=== PATIENT | male | born 1975 | race Caucasian/White ===

== ENCOUNTER 2017-04-24 15:27 | Emergency (ER) | payer SELFPAY ==
[~2017-04-24] VITALS: Ht 165.1 cm; Wt 59.4 kg
[~2017-04-24 15:27] MED LIST: CIPR2.5D15 LEFT EYE
[2017-04-24 15:29] VITALS: Ht 165.1 cm; Wt 59.4 kg
[2017-04-24] MEDS ORDERED: KETOROLAC 30 MG INJ IV STA (15:55)
[2017-04-24] MEDS ORDERED: METHYLPREDNISOLONE 125 MG INJ IV ONE (16:00)
[2017-04-24] MEDS ORDERED: HYDROmorphONE 2 MG/ML SYG IV ONE (16:00)
[2017-04-24] MEDS ORDERED: ONDANSETRON 4 MG INJ IV ONE (16:00)
[2017-04-24] MEDS ORDERED: HYDROmorphONE 1 MG/ML SYG IV STA (17:38)
[2017-04-24] MEDS ORDERED: HYDR-902 PO (18:18)
[2017-04-24] MEDS ORDERED: IBUP800T25 PO (18:18)
[2017-04-24] MEDS ORDERED: METH750T93 PO (18:18)
--- NOTE | 2017-04-24 18:20 | ERD ---
ER Documentation Chief Complaint Chief Complaint pt bib self with c/o left sided back pain radiating to leg, HPI This is a 41-year-old male who was working under his car and when he stood up he felt a sharp pain in his left back and the lower region. There is a slight radiation to the left upper buttocks. No loss of bowel or bladder or weakness in the legs. No numbness in the legs. No prior back history or injury. Patient says the pain is sharp worse when he is sitting or lying down and better when standing. No saddle anesthesia ROS All systems reviewed and are negative except as per history of present illness. Medications Home Meds Active Scripts Methocarbamol* (Robaxin*) 750 Mg Tablet, 750 MG PO TID, #20 TAB Prov:DOE MEMBRENOSTOLOS A. DO 04/24/17 Ibuprofen* (Motrin*) 800 Mg Tab, 800 MG PO Q6H Y for PAIN AND OR ELEVATED TEMP, #30 TAB Prov:DOE MEMBRENOSTOLOS A. DO 04/24/17 Hydrocodone/Acetaminophen ([place] 10-325 Tablet) 1 Each Tablet, 1 TAB PO Q6H Y for PAIN, #20 TAB Prov:LEPATOSDOESTOLOS A. DO 04/24/17 Ciprofloxacin Opht* (Ciloxan*) 0.3%-2.5 Ml Opht Drops, 2 DROP LEFT EYE Q4 for 7 Days, BOTTLE Prov:ALMA OBRIEN MD 09/06/15 Allergies Allergies: Coded Allergies: No Known Allergy (Unverified , 04/24/17) PMhx/Soc Hx Alcohol Use: No Hx Substance Use: No Hx Tobacco Use: Yes (1 pack a day) Smoking Status: Current every day smoker FmHx Family History: No coronary disease Physical Exam Vitals Vital Signs Date Time Temp Pulse Resp B/P Pulse Ox O2 Delivery O2 Flow Rate FiO2 04/24/17 17:40 98.0 56 18 126/73 99 Room Air 04/24/17 15:29 98.3 62 16 138/74 98 Physical Exam Const: Well-developed, well-nourished Head: Atraumatic, normocephalic Eyes: Normal Conjunctiva, PERRLA, EOMI, normal sclera, no nystagmus ENT: Normal External Ears, Nose and Mouth, moist mucus membranes. Neck: Full range of motion. No meningismus, no lymphadenopathy. Resp: Clear to auscultation bilaterally, no wheezing, rhonchi, rales Cardio: Regular rate and rhythm, no murmurs, S1 S2 present Abd: Soft, non tender x 4, non distended. Normal bowel sounds, no guarding or rebound, no pulsitile abdominal masses or bruits Skin: No petechiae or rashes, no ecchymosis , no maculopapular rash Back: There is left lower lumbar paraspinal muscle tenderness with palpation with spasm worse with movement and worse with extension of the left leg but no radiculopathy no saddle anesthesia Ext: No cyanosis, or edema, FROM x 4, normal inspection, neurovascularly intact x 4 Neur: Awake and alert, STR 5/5 x 4, sensation intact x 4, no focal findings, cerebellum intact Psych: Normal Mood and Affect Results 24 hrs Current Medications Medications (Trade) Dose Ordered Sig/Rebeca Route PRN Reason Start Time Stop Time Status Last Admin Dose Admin Hydromorphone HCl (Dilaudid) 1 mg ONCE ONCE IV 04/24/17 16:00 04/24/17 16:01 SD 04/24/17 16:12 Ondansetron HCl (Zofran Inj) 4 mg ONCE ONCE IV 04/24/17 16:00 04/24/17 16:01 DC 04/24/17 16:12 Methylprednisolone Sodium Succinate (Solu-Medrol) 125 mg ONCE ONCE IV 04/24/17 16:00 04/24/17 16:01 DC 04/24/17 16:12 Ketorolac Tromethamine (Toradol) 30 mg ONCE STAT IV 04/24/17 15:55 04/24/17 15:57 DC 04/24/17 16:12 Hydromorphone HCl (Dilaudid) 1 mg ONCE STAT IV 04/24/17 17:38 04/24/17 17:39 DC 04/24/17 17:43 Procedures/MDM Patient received intravenous pain medication 2 After observation the patient is feeling better. We will discharge home with Yani Savage. Is not exhibiting any signs of neural impingement or cauda equina Departure Diagnosis: Primary Impression: Low back pain Chronicity: acute Back pain laterality: left Sciatica presence: without sciatica Qualified Code: M54.5 - Acute left-sided low back pain without sciatica Additional Impression: Injury of back Encounter type: initial encounter Qualified Code: S39.92XA - Injury of back , initial encounter Condition: Stable Patient Instructions: Back Sprain/Strain JIA MEMBRENO DO Apr 24, 2017 18:20
[2017-04-24 19:00] VITALS: BP 157/95; PULSE 79; RESP 18; TEMP 98.4
== END 2017-04-24 19:00 | disposition home or self-care (01) ==
LOC: FTE 15:27
DX: S39.92XA Unspecified injury of lower back, initial encounter (principal); F17.210 Nicotine dependence, cigarettes, uncomplicated; W18.39XA Other fall on same level, initial encounter; Y92.9 Unspecified place or not applicable
CPT/HCPCS: 96374; 96375; 96376; 99284; J1170; J1885; J2405; J2930